=== PATIENT | male | born 1990 | race Hispanic/Latino ===

== ENCOUNTER 2025-11-09 21:09 | Emergency (ER) | payer MEDICAID, SELFPAY ==
[2025-11-09 21:20] VITALS: BP 138/97; PULSE 95; RESP 16; TEMP 36.6; O2SAT 100; BMI 27.3
--- NOTE | 2025-11-09 21:28 | ED.ANIMALBIT ---
HPI - Animal Bite General Chief Complaint: Animal Bite Stated Complaint: bit by cat this afternoon Time Seen by Provider: 11/09/25 21:25 Source: patient Mode of arrival: Ambulatory History of Present Illness HPI narrative: 34-year-old male patient with a history of HIV and ongoing treatment who was scratched and bitten by his own cat this afternoon when he was trying to help the cat. He has scratches on both hands and bite punctures over the right posterior 4th PIP and the left lateral hand and left webspace between the index and thumb. Slight swelling. Related Data Previous Rx's ?Medication ?Instructions ?Recorded amoxicillin 875 mg-potassium 1 tab PO BID 10 days #20 tabs 11/09/25 clavulanate 125 mg tablet Allergies Allergy/AdvReac Type Severity Reaction Status Date / Time latex Allergy Mild Verified 11/09/25 21:19 Review of Systems Review of Systems ROS Unobtainable: All systems reviewed & are unremarkable except as noted in HPI and below Musculoskeletal Musculoskeletal: Reports as per HPI Integumentary/Breasts Skin/Breast: Reports as per HPI Patient History Social History Smoking Status: Never smoker Smoking Status: Never smoker Alcohol type: wine Exam Narrative Exam Narrative: General: Alert and conversant. No distress. Appears well nourished and well hydrated Lungs: Nonlabored respiration. Musculoskeletal: Exam of the right hand reveals cat scratches and an area of slight swelling and discoloration over the dorsum of the right 4th finger PIP. Left hand has puncture pantoja in the lateral hand proximal to the 5th finger and also between the index and thumb on the dorsum. Also a few cat scratches. Otherwise, Exam of the extremities, axial spine and ribcage reveals no deformity, bony tenderness or swelling. Range of motion intact Neuro: Alert and oriented. Cranial nerves, motor, sensory and cerebellar all grossly intact. No focal deficit Skin: Warm and normal color. No rashes Psychological: Normal affect and interaction. No evidence of delusion or psychosis. Normal mood. Initial Vital Signs Initial Vital Signs: Vital Signs Temperature 97.9 F 11/09/25 21:20 Pulse Rate 95 H 11/09/25 21:20 Respiratory Rate 16 11/09/25 21:20 Blood Pressure 138/97 H 11/09/25 21:20 Pulse Oximetry 100 11/09/25 21:20 Oxygen Delivery Method Room Air 12/19/25 21:20 Course Orders Ordered: Discontinued Medications Amoxicillin/Clavulanate Potassium (Amoxicillin/Clav 875/125 Mg) 1 tab PO NOW ONE Stop: 11/09/25 21:29 Tetanus/Diphtheria Toxoids (Tetanus Diphtheria Toxoids 0.5 Ml Vial) 0.5 ml IM .ONCE ONE Stop: 11/09/25 21:29 Vital Signs Vital signs: Vital Signs - 8 hr 11/09/25 21:20 Temperature 97.9 F Pulse Rate 95 H Respiratory Rate 16 Blood Pressure 138/97 H Pulse Oximetry 100 Oxygen Delivery Method Room Air MDM - Animal Bite MDM Narrative Medical decision making narrative: Patient has cat bites and scratches on both hands. He is at high risk for infection in tetanus is unknown status. He received tetanus booster here in the ER and started on Augmentin. He is to keep the wounds clean and continue Augmentin b.i.d. for 10 days and monitor symptoms. Follow up with primary care or ER if not improving or if worsening. Discharge Plan Departure Patient Disposition: Home Clinical Impression: Cat bite, Cat scratch Instructions: DI for Cat Bite Activity Restrictions/Additional Instructions: Plan: Keep the areas clean likely need at least twice a day. Prescription for Augmentin b.i.d. times 10 days. Follow up with your doctor or the ER if not improving. Prescriptions: New amoxicillin-pot clavulanate 875-125 mg tablet 1 tab PO BID 10 Days Qty: 20 0RF Stand Alone Forms: Patient Portal/API
[2025-11-09] MEDS: TET,DIPH,PERTUSS(ACELL),VAC/PF 0.5 ML SYRINGE IM (21:36)
[2025-11-09] MEDS: AMOXICILLIN/CLAV 875/125 MG 1 TAB PO (21:36)
== END 2025-11-09 21:54 | disposition home or self-care (01) ==
PROVIDERS: Emergency Provider Emergency Medicine
DX: S61.052A Open bite of left thumb without damage to nail, initial encounter (principal); S60.311A Abrasion of right thumb, initial encounter; M79.89 Other specified soft tissue disorders; Z23 Encounter for immunization; W55.01XA Bitten by cat, initial encounter
CPT/HCPCS: 99283; 90715